=== PATIENT | female | born 1985 | race Caucasian/White ===

== ENCOUNTER → 2016-11-03 | Day surgery (SDC) | payer OTHER ==
[~2016-11-03] VITALS: Ht 160 cm; Wt 97.1 kg
[2016-11-03] VITALS (7 sets, daily range): BP systolic 116–126; BP diastolic 53–75; PULSE 62–87; RESP 16–23; O2SAT 95–100
[~2016-11-03] MED LIST: Bupivacaine-MPF 0.25%/EPI 30 mL Inj INFILTRATE ONE; Dexamethasone 4 mg/mL Inj IVPUSH PRN; Dexamethasone 4 mg/mL Inj ONE; EPHEDrine Sulfate 50 mg/mL Inj IVPUSH PRN; Glycopyrrolate 0.2 MG/ML 1mL Inj ONE; HYDROmorphone 1 mg/mL Inj IVPUSH PRN; Ketamine 10 mg/mL 20 mL Inj ONE; Lactated Ringer's 1,000 ML IV SCH; Lactated Ringer's 500 ML IV PRN; MetoCLOpramide 5 mg/mL 2 mL Inj IVPUSH PRN; MetoCLOpramide 5 mg/mL 2 mL Inj ONE; Neostigmine 1 mg/mL 10 mL Inj ONE; Ondansetron 2 mg/mL 2 mL Inj IVPUSH PRN; Ondansetron 2 mg/mL 2 mL Inj ONE; Phenylephrine 10,000 mCg/mL Inj IVPUSH PRN; Propofol 10,000 mCg/mL 20 mL Inj ONE; Rocuronium 10 mg/mL 5 mL Inj ONE; VARE1TAB22 PO; fentaNYL-PF 50 mCg/mL 2 mL Inj ONE; oxyCODONE-Acetamin 5-325 mg Tablet PO PRN
[2016-11-03] MEDS: Lactated Ringer's 1,000 ML IV SCH ×3 (16:30→19:23)
--- NOTE | 2016-11-03 17:28 | PCM.HPANE ---
Patient Data Surgeon Admitting Provider: Attending Provider:Sergio Lowry MD Primary Care Physician:Chetna Grey DO Other Provider:Emilia Joyceingham Anesthesia Reason for Visit Gallstones Ht/WT & BMI Height (Feet): 5 Height (Inches): 3 Weight (Kilograms): 97.1 Body Mass Index 37.00 Allergies Coded Allergies: cefaclor (Verified Allergy, Unknown, 11/03/16) Past Anesthesia History Anesthesia History: Denies:: Abnormal Airway, Anesthesia Reactions, Difficult Intubation, Fam Anesthesia Reaction, Fam Malignant Hypertherm, Malignant Hyperthermia Diabetes History Hx Diabetes?: No MRSA MRSA: No Medications Hypertension Medication: No Home Meds Incl Beta Griffin: No Discontinued Reported Medications Varenicline Tartrate (Chantix)1 Mg Tablet1 Mg PO BID 10/31/16 History History of ENT Problems?: No HEENT History: Positive for:: TMJ (grinds teeth, no nightguard) Denies:: Abnormal Airway Cataracts Difficult Intubation Dysphagia Glaucoma Hearing Problem Sinus Problem Denture Type: None Teeth Condition: Within Normal Limits Hx of Heart Problems?: No Cardiovascular History: Denies:: AICD Abdominal Aortic Aneurism Atrial Fibrillation Cardiac Surgery Chest Pain Congestive Heart Failure Coronary Artery Disease Edema Heart Murmur Hypertension Irregular Heartbeat Pacemaker Peripheral Vascular Rheumatic Fever Hx of Respiratory Problem?: No Respiratory History: Denies:: Asthma COPD Emphysema Oxygen Administration Pneumonia Tuberculosis Use of C-PAP Machine Use of Inhalers / NEBS Hx Neurologic Problems?: No Neurological History: Denies:: Alzheimer's Disease CVA Dementia Dizziness Headaches Multiple Sclerosis Parkinson's Disease Seizures Hx of GI Problems?: Yes Hx of Problems?: No Genitourinary History: Denies:: Kidney Stones Urinary Tract Infection Female Hx: Denies:: Currently Problems with Breasts? Skin History: Denies:: History Skin Disorders? Pressure Ulcers Hx Musculoskeletal Problems?: No Musculoskeletal History: Denies:: Back Injury Degenerative Joint Fibromyalgia Musculoskeletal Trauma Myasthenia Gravis Osteoarthritis Systemic Lupus Hx of Psycho/Social Problems?: No Psycho Social History: Denies:: Anxiety Hx Depression Hx Surgeries?: Yes (tonsillectomy) Hx Any Other Health Problems?: Yes Other History: Denies:: Cancer Thyroid Disease History Blood Transfusions: Positive for:: Accept Blood Products? Denies:: Blood Transfusions Hx Diabetes: No Hx Alcohol Use: NoHx Substance Use: NoHave You Smoked inLast 12 mo: Yes (5-7 cigarettes daily) Stop/Bang Treated for Sleep Apnea?: No Do You Have a CPAP Machine?: No S-Snoring: Do You Snore Loudly: No T-Tired: feel tired, fatigued: No O-Obsered: Observed not breath: No P-Blood Pressure: treated: No B- Body Mass Index > 35 kg/m2: No A- Age over 50: No N- Neck Large Circumference: No G- Gender Male: No JANNY Total Score: 0 JANNY Risk Assessment: Low Risk, <3 Yes Risk Assessment Category Category 1A: Patient has history of documented sleep apnea, and HAS NOT received any narcotic, sedative or anesthesia administration during this stay. Category 1B: Patient has history of documented sleep apnea, and HAS received any narcotic , sedative or anesthesia administration during this stay Category 2: Patient has SUSPECTED Obstructive Sleep Apnea, and HAS received any narcotic , sedative or anesthesia administration during this stay. Category 3: Patient has SUSPECTED Obstructive Sleep Apnea and HAS NOT received narcotic, sedative or anesthesia administration during this stay. Category 4: Outpatient in Procedural Areas with known sleep apnea or who screen positive for High Risk via the STOP/BANG questionnaire. Exam Exam Vital Signs Vital Signs Date Time Temp Pulse Resp B/P Pulse Ox O2 Delivery O2 Flow Rate FiO2 11/03/16 16:49 36.4 87 16 119/65 96 Room Air General Appearance: Oriented X3 HEENT/AIRWAY: MP 2 Lungs: Normal Air Movement Heart: Regular Rate/Rhythm Meds/Labs/Diagnostics Admission Meds Current Medications Lactated Ringer's (Lr) 1,000 ml @ 120 mls/hr Q8H20M IV Last administered on t 16:47; Start 11/03/16 at 05:00; Stop 11/03/16 at 13:19; Status DC Plan Impression Patient chart reviewed, patient interviewed and anesthestic plan with risks, benefits, and alternatives discussed, and informed consent obtained. ASA Physical Status: ASA2 Mod Systemic Disease Anesthetic Plan: GA Bene/Risks/Altern/Consents: Yes HP Complete Prior to Induction: Yes Kenroy Clay MD Nov 03, 2016 17:28
[2016-11-03] MEDS: fentaNYL-PF 50 mCg/mL 2 mL Inj IVPUSH PRN ×2 (19:04→19:20)
--- NOTE | 2016-11-03 20:15 | OP ---
[address] [address] OPERATIVE REPORT PATIENT: OLIVIA DIANA : 1985 MR#: [id number] ADMIT: 11/03/2016 JOB ID: [id number] DATE OF SURGERY: 11/03/2016 ANESTHESIA: General. PREOPERATIVE DIAGNOSIS(ES): Symptomatic cholelithiasis. POSTOPERATIVE DIAGNOSIS(ES): Symptomatic cholelithiasis. OPERATIVE PROCEDURE: Laparoscopic cholecystectomy. SURGEON: Sergio Lowry MD PLASTIC DOLLS MOLD FILLER: LIZZIE Blanco. (The dental front office assistant was required for safe and timely completion of the case). COMPLICATIONS: None. ESTIMATED BLOOD LOSS: Less than 10 mL. CONDITION: Satisfactory. SPECIMEN: Gallbladder. FINDINGS: There were adhesions from the liver to the abdominal wall and also adhesions around the gallbladder suggesting chronic inflammation. INDICATIONS/SIGNIFICANT HISTORY: The patient is a 31-year-old female who has a history of cholelithiasis and postprandial right upper quadrant abdominal pain. She was referred to [facility] and after discussion elected undergo cholecystectomy. OPERATIVE TECHNIQUE: The patient was taken to the operating room and placed in supine position. General anesthesia was administered. The abdomen was prepped and draped in standard surgical fashion. A procedural pause was performed. Entry was gained into the abdomen through a supraumbilical incision using a 10 mm Optiview trocar. Pneumoperitoneum was achieved without complication. Local anesthetic was injected, followed by insertion of 5 mm ports in the subxiphoid as well as two in the right upper quadrant. The gallbladder was grasped and retracted cephalad. Dissection was begun to identify cystic duct and cystic artery. The were both small anterior and posterior cystic arteries with the clips placed on each. Eventually, the gallbladder was pedicleized on the duct alone. Three clips placed on the duct and this was transected sharply. There remainder of the dissection of the gallbladder off the cystic plate was then completed. The gallbladder was placed in an EndoCatch bag and removed through the umbilical port site. The fascia there was closed with an 0 PDS suture with the laparoscopic suture passer. The surgical bed was inspected and found to be hemostatic. The lateral ports were then removed under direct visualization, followed by release of pneumoperitoneum and removal of the remaining port. The skin was closed using 4-0 Monocryl. The entire procedure was well tolerated, without complication. [facility]
--- NOTE | 2016-11-03 22:48 | NUR ---
Discharge Pt arrived on unit at 1950. VSS. Pt complained of slight pain 3/10 and mild nausea. Pt was given pain medication with good relief. Pt diet was advanced with decrease in nausea. Pt umbilical bandage was changed. Pt was given her discharge instructions and was shown the number to call if she has any questions. IV Dc'd intact. Pt wheeled of unit at 2235 via wheelchair and with all belongings.
--- NOTE | 2016-11-04 08:11 | PCM.ANEP1 ---
Post Anesthesia PACU Phase 1 Assessment Anesthetic Administered: GA Level of Alertness: Awake, talking Pain: No Pain Scale Score: 6 Nausea or Vomiting: No CV Function & Hydration Stable: Yes Airway Device: Lungs: Normal Air Movement PACU Phase 2 Assessment Patient Instructions Provided: N/A Kenroy Clay MD Nov 04, 2016 08:11
--- NOTE | 2016-11-09 11:23 | PATH ---
SURGICAL PATHOLOGY Attending Physician:Sergio Lowry MD CASE STATUS: Signed Out PATIENT NAME: OLIVIA DIANA PID: [id number] : 1985 DATE COLLECTED:11/03/2016 00:00 SPECIMEN: Gallbladder CLINICAL HISTORY: GALLSTONES 1). GALLBLADDER WITH CONTENTS FINAL DIAGNOSIS: Gallbladder: Cholelithiasis with associated chronic cholecystitis. ICD10: K80.66 GROSS DESCRIPTION: The specimen is received in one formalin filled container labeled with the patient's name, sublabeled "gallbladder" and consists of an intact 7.0 x 2.5 2.0 CM to lower. The serosa is smooth. The wall is 0.3-0.5 CM in thickness. The mucosa is a dark green in color. The lumen contains one dark green calculus which measures 1.6 x 1.5 x 1.5 CM. 5 international sales representative sections are submitted in one cassette. 11/04/2016 [facility] ICD-9 CODES: CPT CODES: 1: 10041 Electronically Signed Out Jaime Quigley MD [facility] [address], [place] [address] Technical component performed at [facility], [facility] [address] [place], [address]
== END | disposition home or self-care (01) ==
LOC: SAS 16:30
PROVIDERS: ATTEND General Practice
DX: K80.10 Calculus of gallbladder with chronic cholecystitis without obstruction (principal); E66.3 Overweight; F17.210 Nicotine dependence, cigarettes, uncomplicated; Z68.38 Body mass index [BMI] 38.0-38.9, adult
CPT/HCPCS: 47562; J1100; J2405; J2710; J2765; J3010; J7120